=== PATIENT | male | born 1965 | race Two or more races ===

== ENCOUNTER → 2017-03-08 | Outpatient (CLI) | payer BC ==
[~2017-03-08] MED LIST: METHACHOLINE KIT (J7674) INH ONE
--- NOTE | 2017-03-08 08:39 | PFTRPT ---
Tech: Anna OROSCO RRT Age: 51 Sex: Male Race: <Unspecified> Height: 66.25 Inches Weight: 198.00 Lbs BSA: 2.00 Diagnosis: R06.02 METHACHOLINE CHALLENGE REPORT: ORDERING PROVIDER: Harris Morin MD DATE OF SERVICE: 03/08/17 INTERPRETATION: The study was of excellent technical quality. Under protocol, methacholine was administered. At a dose of 25 mg (188.875 CDUs) of methacholine,a 30% decline in the FEV1 was noted. A PC20 of 11.26 is in the "not clearly diagnostic" category. Flow rates did return to baseline post bronchodilator administration. IMPRESSION: Borderline methacholine challenge study in view of the above. Please correlate clinically. MTDD
== END ==
LOC: M CARPUL 07:29
PROVIDERS: ATTEND Internal Medicine Pulmonary Disease
DX: R06.02 Shortness of breath (principal)

== ENCOUNTER → 2020-09-11 | Outpatient (CLI) | payer SELFPAY | LOC: M LABSMTC 11:31 | PROVIDERS: ATTEND Pediatrics | DX: Z20.828 Contact with and (suspected) exposure to other viral communicable diseases (principal) ==

== ENCOUNTER → 2021-04-13 | Outpatient (CLI) | payer BC ==
[~2021-04-13] MED LIST changes: -METHACHOLINE KIT (J7674) INH ONE; +PROHANCE 279.3MG/ML 15ML VIAL As Ordered ONE; +PROHANCE 279.3MG/ML 5ML VIAL As Ordered ONE
--- NOTE | 2021-04-13 11:05 | REP ---
INDICATION: ELEVATED PSA. COMPARISON: None. TECHNIQUE: Using a phased array surface coil, small xwcms-ej-aand imaging was acquired using T2 weighted scans in the axial, coronal, and sagittal imaging planes. Small mjbmi-cn-yojj diffusion-weighted sequences are acquired. Small sphqq-ee-ckjl axial T1 weighted scans are acquired dynamically before and after the intravenous administration of 17 mL of ProHance. Imaging is reviewed using the [employer] computer-aided detection system. FINDINGS: There are small bilateral inguinal hernias containing fat. No adenopathy seen in the pelvis. The osseous structures are unremarkable. The seminal vesicles are not fluid-filled. The prostate measures 5.6 x 5.1 x 4.8 cm for total volume of 67.24 cc. There is diffuse somewhat low signal which is ill-defined throughout the peripheral zone suggesting prostatitis. Nodular signal diffusely is compatible with benign prostatic hypertrophy. Three regions of interest are identified in the prostate for MR ultrasound fusion biopsy. In the left mid and basilar transitional zone there is an area of ill-defined low signal on T2 weighted images and ADC images, with predominant washout, type 3 enhancement. The area measures approximately 2.8 x 1.4 x 2.4 cm for total volume of 5.57 cc. Overall level of suspicion is 3/5 with clinically significant cancer equivocal. Secondly in the right mid and apical anterior transitional zone there is a somewhat lenticular area of low signal on T2, which is also somewhat low in signal on ADC imaging. The area demonstrates predominantly type 3 washout type enhancement. The area measures 2.6 x 2.2 x 1.7 cm for total volume of 4.26 cc. Overall level of suspicion is 3/5 with clinically significant cancer equivocal. Finally in the right mid transitional zone there is an ill-defined area of relatively low signal on T2 and ADC images with predominantly type 3 washout enhancement. The area measures 2.4 x 1.1 x 1.4 cm for total volume of 1.91 cc. The oval are all level of suspicion is 3/5 a clinically significant cancer equivocal. IMPRESSION: There are findings compatible with diffuse prostatitis. There are 3 regions of interest identified in the prostate for MR ultrasound fusion guided biopsy. <Electronically signed by Uriel Angel > 04/13/21 [id number]
== END ==
LOC: M RAD 07:07
PROVIDERS: ATTEND Specialist
DX: R97.20 Elevated prostate specific antigen [PSA] (principal)

== ENCOUNTER → 2021-06-11 | Outpatient (CLI) | payer BC | LOC: M PLAIMG 15:08 | PROVIDERS: ATTEND Nurse Practitioner Family | DX: J45.909 Unspecified asthma, uncomplicated (principal) ==